=== PATIENT | male | born 1955 | race Caucasian/White ===

== ENCOUNTER → 2016-12-12 | Day surgery (SDC) | payer OTHER ==
[~2016-12-12] MED LIST: ACETAMINOPHEN/HYDROcodone 325 MG/5 MG TAB ONE; BUPIVACAINE/EPINEPHRINE 0.25% 50 ML VIAL ONE; BUPIVACAINE/EPINEPHRINE 0.5% PF 30 ML VIAL ONE; CLINDAMYCIN PHOS 600 MG/4 ML VIAL ONE; LACTATED RINGER'S 1000 ML INJ 1,000 ML ONE; MIDAZOLAM HCL 2 MG/2 ML VIAL ONE; MORPHINE SULFATE 4 MG/ML INJ ONE; ONDANSETRON HCL 4 MG/2 ML VIAL IV PUSH ONE; PROPOFOL 200 MG/20 ML AMP IV ONE
--- NOTE | 2016-12-15 18:00 | MP ---
cc: JOSÉ MIGUEL VELAZQUEZ DATE OF SURGERY 12/12/2016 PREOPERATIVE DIAGNOSIS Left knee medial meniscus tear. POSTOPERATIVE DIAGNOSIS Left knee medial meniscus tear. PROCEDURE Left knee arthroscopic partial meniscectomy. SURGEON Dr. José Miguel Velazquez ANESTHESIA General. ESTIMATED BLOOD LOSS Less than 10 cc. TOURNIQUET TIME Zero minutes. COMPLICATIONS None. JUSTIFICATION This patient is a 61-year-old male who injured his left knee. He has persistence of pain in regards to his condition, failure of conservative treatment. Clinical exam as well as MRI confirmed the above-named findings. The patient counseled as to the risks, benefits and alternatives to the above named proposed surgical procedure. He did wish to proceed with surgery. PROCEDURE IN DETAIL A written consent was obtained. The patient identified by name, taken to the operating room, placed supine, general anesthesia was administered as well as 600 milligrams of IV clindamycin. He does have penicillin allergy. Left thigh carefully placed in a well-padded leg guzmán. Left lower extremity prepped and draped using as isopropyl alcohol, Hibiclens solution and Chloraprep solutionl. After a time-out was performed a standard medial and lateral parapatellar arthroscopic portal was established. The patellofemoral joint revealed minimal chondromalacia. The medial compartment revealed a large complex tear of the posterior horn of the medial meniscus with a large unstable fragment flipped beneath itself. An arthroscopic biter followed by an arthroscopic shaver was introduced in the medial compartment to perform partial meniscectomy. The meniscal rim was probed and noted to be stable after meniscectomy. There was only slight grade 2 chondromalacia of the medial femoral condyle noted. The intercondylar notch revealed the anterior posterior cruciate ligaments to be intact. The lateral compartment was free of meniscal pathology and chondromalacia. At the conclusion of the surgical procedure 30 cc of 0.5% Marcaine with epinephrine was injected into the knee joint. The arthroscopic portals were closed with 3-0 Prolene suture. Sterile dressing applied. The patient tolerated the procedure well. No intraoperative complications noted. José Miguel Velazquez MD JWM/SHANNON /3:07 PM /5:52 PM
== END | disposition home or self-care (01) ==
LOC: ESDC 12:36
PROVIDERS: ATTEND Orthopaedic Surgery Sports Medicine
DX: S83.232A Complex tear of medial meniscus, current injury, left knee, initial encounter (principal)
CPT/HCPCS: 01400; 29881; J2250; J2270; J2405; J3010; J7120